=== PATIENT | male | born 1955 | race American Indian/Alaskan Native ===

== ENCOUNTER 2017-10-05 06:44 | Day surgery (SDC) | payer BC ==
[2017-10-05] MEDS ORDERED: ECOTRIN PO NR (07:04)
[2017-10-05 07:40] LABS: Basophils # (Auto) 0.1 K/mm3 (0.0-0.1); Basophils % (Auto) 1.3 % (0.0-1.8); Eosinophils # (Auto) 0.2 K/mm3 (0.0-0.4); Eosinophils % (Auto) 3.5 % (0.0-4.3); Hematocrit 40.1 % (35.5-45.6); Hemoglobin 12.9 gm/dl (11.8-15.2); Lymphocytes % (Auto) 36.9 % (13.4-35.0); Mean Corpuscular HGB Conc 32 % (32-34); Mean Corpuscular Hemoglobin 28 pg (28-32); Mean Corpuscular Volume 86 fl (84-94); Monocytes # (Auto) 0.8 K/mm3 (0.0-0.8); Monocytes % (Auto) 13.6 % (0.0-7.3); Platelet Count 208 K/mm3 (140-440); Red Blood Count 4.69 M/mm3 (3.65-5.03); Red Cell Distribution Width 15.6 % (13.2-15.2)
[2017-10-05 07:52] LABS: BUN/Creatinine Ratio 13; Blood Urea Nitrogen 13 mg/dL (9-20); Calcium 9.3 mg/dL (8.4-10.2); Hemolysis Index 8
[2017-10-05 07:53] LABS: INR 1.03 (0.87-1.13)
[2017-10-05] MEDS ORDERED: NACL 0.9% 500 ML 500 ML IV SCH (08:00)
[2017-10-05] MEDS ORDERED: HEPARIN/NS 5000 UNIT/500ML(CATH LAB) 1,000 ML IR ONE (08:10)
[2017-10-05] MEDS ORDERED: XYLOCAINE 2% INFILTRATI ONE (08:11)
[2017-10-05] MEDS ORDERED: VERSED ONE (08:12)
[2017-10-05] MEDS ORDERED: SUBLIMAZE ONE (08:13)
[2017-10-05] MEDS: HEPARIN 10,000 UNITS/10 ML ONE ×2 (08:53→09:00)
[2017-10-05] MEDS: CALAN ONE ×2 (08:53→09:00)
[2017-10-05] MEDS: NITROGLYCERIN SYRINGE 3 ML ONE ×2 (08:54→09:00)
[2017-10-05] MEDS ORDERED: LASIX ONE (09:05)
--- NOTE | 2017-10-05 09:21 | Short Stay Summary ---
Short Stay Documentation Date of service: 10/05/17 - History H&P: obtained from office - Allergies and Medications Current Medications: Allergies No Known Allergies Allergy (Unverified 10/05/17 06:44) Home Medications Medication Instructions Recorded Confirmed Last Taken Type Carvedilol [Coreg] 3.125 mg PO BID 10/05/17 10/05/17 10/05/17 05:00 History Furosemide [Lasix] 20 mg PO DAILY 10/05/17 10/05/17 10/05/17 05:00 History Lisinopril [Prinivil] 5 mg PO DAILY 10/05/17 10/05/17 10/05/17 05:00 History Pravastatin Sodium [Pravastatin] 10 mg PO DAILY 10/05/17 10/05/17 10/03/17 History glipiZIDE [Glipizide] 10 mg PO DAILY 10/05/17 10/05/17 10/05/17 05:00 History Active Medications Aspirin (Ecotrin) 325 mg PO ONCE NR Stop: 10/05/17 10:00 Last Admin: 10/05/17 07:25 Dose: 325 mg Sodium Chloride (Nacl 0.9% 500 Ml) 500 mls @ 50 mls/hr IV DIRECT STEVE Stop: 10/05/17 17:59 Last Admin: 10/05/17 07:45 Dose: 50 mls/hr - Brief post op/procedure progress note Date of procedure: 10/05/17 Pre-op diagnosis: chf Post-op diagnosis: same Procedure: see report non ischemic cardiomyopathy Anesthesia: local Estimated blood loss: none Pathology: none - Disposition Condition at discharge: Good Disposition: [id number] TO HOME OR SELFCARE - Discharge Diagnoses (1) Systolic heart failure Status: Chronic Qualifiers: Heart failure chronicity: acute on chronic Qualified Code(s): I50.23 - Acute on chronic systolic (congestive) heart failure (2) CAD (coronary artery disease) Status: Chronic Qualifiers: Coronary Disease-Associated Artery/Lesion type: [place] artery Associated angina: without angina (3) Cardiomyopathy Status: Chronic Qualifiers: Cardiomyopathy type: unspecified Qualified Code(s): I42.9 - Cardiomyopathy , unspecified (4) Hypertension Status: Chronic Qualifiers: Hypertension type: essential hypertension Qualified Code(s): I10 - Essential (primary) hypertension (5) Hyperlipemia Status: Chronic Qualifiers: Hyperlipidemia type: mixed hyperlipidemia Qualified Code(s): E78.2 - Mixed hyperlipidemia (6) COPD (chronic obstructive pulmonary disease) Status: Chronic Qualifiers: Emphysema type: unspecified (7) Sleep apnea in adult Status: Chronic (8) Diabetes mellitus Status: Chronic Qualifiers: Diabetes mellitus type: type 2 Diabetes mellitus intermediate accountant insulin use: with intermediate accountant use Diabetes mellitus complication status: with circulatory complication Diabetes mellitus complication detail: with other circulatory complications Qualified Code(s): E11.59 - Type 2 diabetes mellitus with other circulatory complications; Z79.4 - intermediate accountant (current) use of insulin Short Stay Discharge Plan Activity: advance as tolerated Diet: low fat, low cholesterol, low salt, diabetic Wound: keep clean and dry Follow up with: MAGDALENA PEREZ [Other] - 7 Days
[2017-10-05 11:41] VITALS: BP 121/81
--- NOTE | 2017-10-05 13:24 | Cardiac Catherization Report ---
LEFT HEART CATHETERIZATION ORDERING PHYSICIAN: ____ CLINICAL INFORMATION: This is a 62-year-old -Chinese gentleman with hypertension who has sleep apnea, COPD. The patient was found to have an EF of 25-30% with moderate mitral regurgitation, [id number] aortic regurgitation and had abnormal stress test showing LV dysfunction with history of hypertension, is here for left heart catheterization. Moderate sedation was performed, 0.5 mg of Versed and 50 mcg of fentanyl was given. A total sedation time 20 minutes. Sedation started time at 8:55 a.m. and finished at 9:15 a.m. PROCEDURE DETAILS: It was done via the right radial artery, sterile technique, local anesthesia, a 6-Macedonian radial sheath inserted. PROCEDURE FINDINGS: Left system was engaged with JL3.5 catheter. The left main is large and patent and bifurcates to large LAD that is patent from proximally, mid, at the distal, at the apex. 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 Diagonal 1 and diagonal 2 are jvsrl-yy-bjwadt caliber vessel that is patent. Circumflex and AV groove is a medium caliber vessel. Ramus proximal is patent, mid after ramus, qhjjy-dq-nchmay caliber vessel patent. OM-1 is a faelw-ix-wqkwrn caliber vessel, patent. After OM-1, there is a focal 40% lesion and the rest of the circumflex and AV groove is patent. RCA engaged with JR4 catheter, is a large dominant vessel. It is patent with mild luminal irregularities proximal to mid. There is also an AV brandon artery that comes off the proximal portion that is small caliber vessel that is patent and distal at the apex, at the bifurcation has 20% lesion at distal RCA, proximal PDA and proximal PLV, which are ztede-hi-qwxkbr caliber vessel, patent. LV gram done in HEBREW and DAWSON view shows [id number]-mn-gplqxb LV dysfunction, EF 25%, LVEDP of 40-45 mmHg. Aortic is 135/80, ____ is 139/40. There was no gradient across the aortic valve. A 5-Macedonian catheter was taken over a guidewire. A 6-Macedonian radial sheath was discontinued. Radial dressing applied. No hematoma, no bleeding. SUMMARY: Nonischemic cardiomyopathy. Left main patent. LAD at the apex has systolic bridging with a focal 70% lesion, circumflex, mid after patent ramus and OM-1 has a focal 40%. Distal RCA has nonobstructive distal disease at the bifurcation of 20%. Treat medically. Discussed this with the patient and the patient's family. JOB# [id number] AVRIL/FENG
== END 2017-10-05 11:35 | disposition home or self-care (01) ==
LOC: CATHLABREC 06:44
PROVIDERS: ATTEND Internal Medicine
DX: I25.10 Atherosclerotic heart disease of native coronary artery without angina pectoris (principal); I42.0 Dilated cardiomyopathy; I35.1 Nonrheumatic aortic (valve) insufficiency; I10 Essential (primary) hypertension; E78.5 Hyperlipidemia, unspecified; E11.9 Type 2 diabetes mellitus without complications; G47.33 Obstructive sleep apnea (adult) (pediatric); E66.01 Morbid (severe) obesity due to excess calories; J44.9 Chronic obstructive pulmonary disease, unspecified; F17.210 Nicotine dependence, cigarettes, uncomplicated; Z79.01 Long term (current) use of anticoagulants
CPT/HCPCS: 36415; 80048; 85025; 85610; 85730; 93005; 93010; 93458; C1894; J1644; J1940; J2250; J3010; J7040; Q9967